=== PATIENT | female | born 1960 | race Asian ===

== ENCOUNTER 2018-12-31 09:06 | Day surgery (SDC) | payer OTHER | END 2018-12-31 10:55 | disposition home or self-care (01) | LOC: OR 09:06 | PROC: 3E0R33Z Introduction of Anti-inflammatory into Spinal Canal, Percutaneous Approach (ICD-10-PCS; principal; 2018-12-31) | PROC: B01BYZZ Fluoroscopy of Spinal Cord using Other Contrast (ICD-10-PCS; 2018-12-31) | DX: M50.123 Cervical disc disorder at C6-C7 level with radiculopathy (principal) | CPT/HCPCS: J1020 ==

== ENCOUNTER 2019-05-05 08:40 | Day surgery (SDC) | payer OTHER ==
[~2019-05-05] VITALS: Ht 127 cm; Wt 110.2 kg
== END 2019-05-05 10:40 | disposition home or self-care (01) ==
LOC: OR 08:40
PROC: 3E0R33Z Introduction of Anti-inflammatory into Spinal Canal, Percutaneous Approach (ICD-10-PCS; principal; 2019-05-05)
PROC: B01BYZZ Fluoroscopy of Spinal Cord using Other Contrast (ICD-10-PCS; 2019-05-05)
DX: M51.16 Intervertebral disc disorders with radiculopathy, lumbar region (principal)
CPT/HCPCS: J1020